=== PATIENT | male | born 1955 | race Caucasian/White ===

== ENCOUNTER 2017-12-29 17:26 | Emergency (ER) | payer OTHER ==
[~2017-12-29] VITALS: Ht 172.7 cm; Wt 95.2 kg
[~2017-12-29 17:26] MED LIST: AMLO5 PO; BP MED; CARB10OTL; CARV3.125 PO; CITA20 PO; ENAL20 PO; ENALAPRIL PO; GLYBURIDE; GLYBURIDE PO; HTN MEDICATION PO; Humulin 70-30 V10 ML SQ; IBUP600 PO; INS70/30I; INSU7030P SC; INSUL100I SC; Iron Supplemen325 MG PO; METF500 PO; METFORMIN; NAPR375 PO; NAPR500 PO; NITR.4SL SL; Norco 5-325 Ta1 EACH PO; Norvasc5 MG PO; Prednisone20 MG PO
== END 2017-12-30 17:40 | disposition home or self-care (01) ==
LOC: ER 17:26
DX: Z00.8 Encounter for other general examination (principal); E11.9 Type 2 diabetes mellitus without complications; I10 Essential (primary) hypertension; F17.200 Nicotine dependence, unspecified, uncomplicated; Z79.84 Long term (current) use of oral hypoglycemic drugs; Z79.899 Other long term (current) drug therapy; Z79.4 Long term (current) use of insulin
CPT/HCPCS: 99283